=== PATIENT | female | born 1960 | race African-American/Black ===

== ENCOUNTER 2021-03-12 17:08 | Emergency (ER) | payer MEDICARE, MEDICAID ==
[~2021-03-12] VITALS: Ht 157.5 cm; Wt 90.9 kg
[~2021-03-12 17:08] MED LIST: ACET-704 PO; CYCL5TAB PO; IBUP-1060 PO; MELO7.5T5 PO; ORPH100T PO
--- NOTE | 2021-03-12 17:19 | PHYS DOC ---
Past Medical History Past Medical History: Arthritis, Depression, Other Additional Past Medical Histor: drug abuse; PTSD; bulging disc Past Surgical History: Smoking Status: Former Smoker Alcohol Use: Sober Drug Use: None General Adult EDM: Chief Complaint: CHEST PAIN HPI: HPI: Patient is a 60-year-old female who presents to the emergency department for substernal chest pain that started at 1630. She describes it as a stabbing pain and rates it 8 out of 10. It does not radiate. Was worse after eating. No alleviating factors. No treatment prior to arrival. Patient reports that she was feeling mildly short of breath, lightheaded and diaphoretic. She reports nausea and one episode of vomiting. Patient has a history of hypertension. Review of Systems: Review of Systems: Respiratory: See HPI Cardiovascular: See HPI GI: See HPI Neurologic: See HPI Heart Score: C/O Chest Pain: Yes HEART Score for Chest Pain: HEART Score for Chest Pain Response (Comments) Value History Slighlty/Non-Suspicious 0 ECG Normal 0 Age >45 - < 65 1 Risk Factors 1 or 2 Risk Factors 1 Troponin < Normal Limit 0 Total 2 Risk Factors: Risk Factors: DM, Current or recent (<one month) smoker, HTN, HLP, family history of CAD, obesity. Risk Scores: Score 0 - 3: 2.5% MACE over next 6 weeks - Discharge Home Score 4 - 6: 20.3% MACE over next 6 weeks - Admit for Clinical Observation Score 7 - 10: 72.7% MACE over next 6 weeks - Early Invasive Strategies Allergies: Allergies: Allergies Coded Allergies Type Severity Reaction Last Updated Verified Penicillins Allergy Intermediate 04/18/15 Yes Sulfa (Sulfonamide Antibiotics) Allergy Intermediate 04/18/15 Yes diphenhydramine Allergy Intermediate 04/18/15 Yes Uncoded Allergies Type Severity Reaction Last Updated Verified antidepressants" Allergy Unknown 04/18/15 Physical Exam: PE: Constitutional: Well developed, well nourished, no acute distress, non-toxic appearance. [] HENT: Normocephalic, atraumatic, bilateral external ears normal, oropharynx moist, no oral exudates, nose normal. [] Eyes: PERRL, EOMI, conjunctiva normal, no discharge. [] Neck: Normal range of motion, no stridor Cardiovascular:Heart rate regular rhythm, chest pain reproducable, no murmur [] Lungs & Thorax: Bilateral breath sounds clear to auscultation [] Abdomen: Bowel sounds normal, soft, no tenderness, no masses, no pulsatile masses. [] Skin: Warm, dry, no erythema, no rash. [] Back: Normal range of motion Extremities: No tenderness, no cyanosis, no clubbing, ROM intact, no edema. [] Neurologic: Alert and oriented X 3, normal motor function, normal sensory function, no focal deficits noted. [] Psychologic: Affect normal, judgement normal, mood normal. [] Current Patient Data: Labs: Laboratory Tests Test 03/12/21 17:22 White Blood Count 7.4 x10^3/uL Red Blood Count 4.35 x10^6/uL Hemoglobin 13.2 g/dL Hematocrit 38.9 % Mean Corpuscular Volume 89 fL Mean Corpuscular Hemoglobin 30 pg Mean Corpuscular Hemoglobin Concent 34 g/dL Red Cell Distribution Width 13.8 % Platelet Count 257 x10^3/uL Neutrophils (%) (Auto) 79 % Lymphocytes (%) (Auto) 12 % Monocytes (%) (Auto) 7 % Eosinophils (%) (Auto) 2 % Basophils (%) (Auto) 0 % Neutrophils # (Auto) 5.8 x10^3/uL Lymphocytes # (Auto) 0.9 x10^3/uL Monocytes # (Auto) 0.5 x10^3/uL Eosinophils # (Auto) 0.1 x10^3/uL Basophils # (Auto) 0.0 x10^3/uL Sodium Level 139 mmol/L Potassium Level 4.0 mmol/L Chloride Level 104 mmol/L Carbon Dioxide Level 27 mmol/L Anion Gap 8 Blood Urea Nitrogen 12 mg/dL Creatinine 0.9 mg/dL Estimated GFR (Cockcroft-Gault) 77.0 BUN/Creatinine Ratio 13 Glucose Level 86 mg/dL Calcium Level 9.4 mg/dL Total Bilirubin 0.5 mg/dL Aspartate Amino Transf (AST/SGOT) 30 U/L Alanine Aminotransferase (ALT/SGPT) 33 U/L Alkaline Phosphatase 95 U/L Troponin I High Sensitivity 7 ng/L Total Protein 7.3 g/dL Albumin 3.7 g/dL Albumin/Globulin Ratio 1.0 Current Medications Medications (Trade) Dose Ordered Sig/Baldemar Route PRN Reason Start Time Stop Time Status Last Admin Dose Admin Aspirin (Aspirin Chewable) 324 mg 1X ONCE PO 03/12/21 17:30 03/12/21 17:31 DC 03/12/21 17:34 Sodium Chloride 1,000 ml @ 1,000 mls/hr 1X ONCE IV 03/12/21 17:30 03/12/21 18:29 DC 03/12/21 17:33 Ondansetron HCl (Zofran) 4 mg 1X ONCE IVP 03/12/21 17:30 03/12/21 17:31 DC Famotidine (Pepcid Vial) 20 mg 1X ONCE IVP 03/12/21 17:30 03/12/21 17:31 DC 03/12/21 17:34 Fentanyl Citrate (Fentanyl 2ml Vial) 50 mcg 1X ONCE IVP 03/12/21 17:30 03/12/21 17:31 DC EKG: EKG: EKG performed by ER staff at 1712 shows sinus rhythm with a rate of 60, QTC of 394, no STEMI read by Dr. Garibay at 1714 [] Radiology/Procedures: Radiology/Procedures: []REASON: cp PROCEDURE: PORTABLE CHEST 1V AP portable chest radiograph 03/12/2021 Clinical History: Chest pain. An AP erect portable digital radiograph of the chest was obtained. Comparison study is dated 09/08/2006. The cardiac silhouette is normal in size. The thoracic aorta is tortuous. No acute pulmonary infiltrate is seen. No pleural effusion or pneumothorax is noted. Degenerative changes are seen involving the thoracic spine and both shoulders. Impression: No acute abnormality is seen. Electronically signed by: Kavon Mike MD (03/12/2021 5:33 PM) [id number] DICTATED and SIGNED BY: KAVON MIKE MD DATE: 03/12/21 [id number] Course & Med Decision Making: Course & Med Decision Making Pertinent Labs and Imaging studies reviewed. (See chart for details) [] Patient presents to the emergency department for chest pain that occurred after eating with nausea/vomiting. Work-up in the ER consisted of blood work, EKG, chest x-ray. Patient was treated with IV fluids, nausea medication and pepcid. Patient refused pain medication and nausea medication in ER. In the ER was unremarkable. Patient had negative troponin. Her heart score was 2. Patient reports improvement in her symptoms following treatment in the emergency department. She reports that she denies GERD and was wondering if this is possibly due to her GERD as it was resolved with Pepcid. Patient advised to follow-up with her primary care provider. I discussed with patient all findings and diagnostic testing as well as the need to follow-up with PCP for further evaluation and treatment or return to the ER if any new or worsening symptoms. Strict return precautions were also discussed at length. Patient voiced understanding and agreement with the plan. Patient is hemodynamically stable at the time of disposition. Dragon Disclaimer: Dragon Disclaimer: This electronic medical record was generated, in whole or in part, using a voice recognition dictation system. Departure Departure Impression: Primary Impression: Chest pain Qualified Codes: R07.9 - Chest pain, unspecified Disposition: HOME / SELF CARE / HOMELESS Condition: GOOD Referrals: WESTON NOWAK MD (PCP) Patient Instructions: Chest Pain (Nonspecific) Additional Instructions: You were seen in the emergency department today for chest pain. You reported improvement in your symptoms after being treated with Pepcid. At this time, does not appear that you are experiencing acute coronary syndrome. However, if you go home and develop chest pain again, you must be reevaluated in the ER immediately. At home rest and increase your fluids. Avoid any foods that may cause an increase in your GERD such as spicy or greasy foods. You should follow-up with your primary care provider tomorrow regarding your ER visit. Return to the emergency department if you develop chest pain, shortness of breath, intractable nausea or vomiting, dizziness or syncope, high fevers refractory to treatment or any new or worsening concerns. EMERGENCY DEPARTMENT GENERAL DISCHARGE INSTRUCTIONS Thank you for coming to [facility] Emergency Department (ED) today and trusting us with you care. We trust that you had a positive experience in our Emergency Department. If you wish to speak to the department management, you may call the Director at [phone]. YOUR FOLLOW UP INSTRUCTIONS ARE FOLLOWS: 1. Do you have a private Doctor? If you do not have a private doctor, please ask for a resource list of physicians or clinics that may be able to assist you with follow up care. 2. The Emergency Physicain has interpreted your x-rays. The X-Ray specialist will also review them. If there is a change in the findings, you will be notified in 48 hours when at all possible. 3. A lab test or culture has been done, your results will be reviewed and you will be notified if you need a change in treatment. ADDITIONAL INSTRUCTIONS AND INFORMATION: 1. Your care today has been supervised by a physician who is specially trained in emergency care. Many problems require more than one evaluation for a complete diagnosis and treatment. We recommend that you schedule your follow up appointment as recommended to ensure complete treatment of you illness or injury. If you are unable to obtain follow up care and continue to have a problem, or if your condition worsens, we recommend that you return to the ED. 2. We are not able to safely determine your condition over the phone nor are we able to give sound medical advice over the phone. For these safety reasons, if you call for medical advice we will ask you to come to the ED for further evaluation. 3. If you have any questions regarding these discharge instructions please call the ED at [phone]. SAFETY INFORMATION: In the interest of safety, wellness, and injury prevention; we encourage you to wear your sealbelt, if you smoke; quite smoking, and we encourage family to use a protective helmet for bicycling and other sporting events that present an increased risk for head injury. IF YOUR SYMPTOMS WORSEN OR NEW SYMPTOMS DEVELOP, OR YOU HAVE CONCERNS ABOUT YOUR CONDITION; OR IF YOUR CONDITION WORSENS WHILE YOU ARE WAITING FOR YOUR FOLLOW UP APPOINTMENT; EITHER CONTACT YOUR PRIMARY CARE DOCTOR, THE PHYSICIAN WHOSE NAME AND NUMBER YOU WERE GIVEN, OR RETURN TO THE ED IMMEDIATELY. JOCELYN SAAVEDRA APRN Mar 12, 2021 17:19
[2021-03-12 17:29] LABS: BASO % 0 % (0-3); EOS # 0.1 x10^3/uL (0.0-0.7); EOS % 2 % (0-3); HEMATOCRIT 38.9 % (36.0-47.0); HEMOGLOBIN 13.2 g/dL (12.0-15.5); LYMPH # 0.9 x10^3/uL (1.0-4.8); LYMPH % 12 % (24-48); MEAN CORPUSCULAR HEMOGLOBIN 30 pg (25-35); MEAN CORPUSCULAR HGB CONC 34 g/dL (31-37); MEAN CORPUSCULAR VOLUME 89 fL (79-100); MONO # 0.5 x10^3/uL (0.0-1.1); MONO % 7 % (0-9); NEUT # 5.8 x10^3/uL (1.8-7.7); NEUT % 79 % (31-73); PLATELET COUNT 257 x10^3/uL (140-400); RED BLOOD COUNT 4.35 x10^6/uL (3.50-5.40); RED CELL DISTRIBUTION WIDTH 13.8 % (11.5-14.5); WHITE BLOOD COUNT 7.4 x10^3/uL (4.0-11.0)
[2021-03-12] MEDS ORDERED: IV NORMAL SALINE 1000ML BAG 1,000 ML IV ONE (17:30)
[2021-03-12] MEDS ORDERED: ASPIRIN CHEWABLE 81 MG TABLET. PO ONE (17:30)
[2021-03-12] MEDS ORDERED: FAMOTIDINE 20 MG/2 ML VIAL IVP ONE (17:30)
[2021-03-12] MEDS ORDERED: fentaNYL PF VIAL 100 MCG/2 ML VIAL IVP ONE (17:30)
[2021-03-12] MEDS ORDERED: ONDANSETRON PF 4 MG/2 ML VIAL. IVP ONE (17:30)
--- NOTE | 2021-03-12 17:35 | RAD ---
AP portable chest radiograph 03/12/2021 Clinical History: Chest pain. An AP erect portable digital radiograph of the chest was obtained. Comparison study is dated 09/08/2006. The cardiac silhouette is normal in size. The thoracic aorta is tortuous. No acute pulmonary infiltra te is seen. No pleural effusion or pneumothorax is noted. Degenerative changes are seen involving the thoracic spine and both shoulders. Impression: No acute abnormality is seen. Electronically signed by: Kavon Mike MD (03/12/2021 5:33 PM) [id number]
[2021-03-12 17:42] LABS: CALCIUM 9.4 mg/dL (8.5-10.1); CREATININE 0.9 mg/dL (0.6-1.0)
[2021-03-12 17:48] LABS: ALBUMIN 3.7 g/dL (3.4-5.0); TOTAL BILIRUBIN 0.5 mg/dL (0.2-1.0); TOTAL PROTEIN 7.3 g/dL (6.4-8.2)
[2021-03-12 18:47] VITALS: BP 160/72
[2021-03-12] MEDS ORDERED: KETOROLAC 15 MG/ML VIAL. IVP ONE (19:00)
--- NOTE | 2021-03-13 00:06 | EKG ---
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
== END 2021-03-12 19:05 | disposition home or self-care (01) ==
LOC: ER 17:08
DX: R07.2 Precordial pain (principal); R42 Dizziness and giddiness; R06.02 Shortness of breath; R61 Generalized hyperhidrosis; I10 Essential (primary) hypertension; F43.10 Post-traumatic stress disorder, unspecified; Z87.891 Personal history of nicotine dependence; Z88.0 Allergy status to penicillin; Z88.2 Allergy status to sulfonamides; Z88.5 Allergy status to narcotic agent; Z88.8 Allergy status to other drugs, medicaments and biological substances
CPT/HCPCS: 36415; 71045; 80053; 84484; 85025; 93005; 96361; 96374; 96375; 99285; J1885; J3490; J7030

== ENCOUNTER 2021-06-13 16:23 | Emergency (ER) | payer MEDICARE, MEDICAID ==
[~2021-06-13] VITALS: Ht 157.5 cm; Wt 87.3 kg
[2021-06-13] MEDS ORDERED: MECLIZINE HCL 12.5 MG TABLET. PO ONE (17:00)
[2021-06-13] MEDS ORDERED: IV NORMAL SALINE 1000ML BAG 1,000 ML IV ONE (17:00)
[2021-06-13 17:02] LABS: BILIRUBIN,URINE NEGATIVE (NEG); CLARITY,URINE CLEAR; COLOR,URINE YELLOW; NITRITE,URINE NEGATIVE (NEG); PROTEIN,URINE NEGATIVE (NEG-TRACE); UROBILINOGEN,URINE 0.2 mg/dL (0.2 mg/dL)
[2021-06-13 17:07] LABS: BASO % 1 % (0-3); EOS # 0.1 x10^3/uL (0.0-0.7); EOS % 2 % (0-3); HEMATOCRIT 37.5 % (36.0-47.0); HEMOGLOBIN 12.3 g/dL (12.0-15.5); LYMPH # 1.1 x10^3/uL (1.0-4.8); LYMPH % 22 % (24-48); MEAN CORPUSCULAR HEMOGLOBIN 29 pg (25-35); MEAN CORPUSCULAR HGB CONC 33 g/dL (31-37); MEAN CORPUSCULAR VOLUME 90 fL (79-100); MONO # 0.6 x10^3/uL (0.0-1.1); MONO % 13 % (0-9); NEUT # 3.2 x10^3/uL (1.8-7.7); NEUT % 63 % (31-73); PLATELET COUNT 217 x10^3/uL (140-400); RED BLOOD COUNT 4.18 x10^6/uL (3.50-5.40); RED CELL DISTRIBUTION WIDTH 14.2 % (11.5-14.5)
[2021-06-13 17:08] LABS: BACTERIA,URINE 0 /HPF (0-FEW); RBC,URINE 0 /HPF (0-2)
[2021-06-13 17:10] LABS: AMPHETAMINE/METHAMPHETAMINE NEG (NEG); BARBITURATES NEG (NEG); BENZODIAZEPINES NEG (NEG); CANNABINOIDS NEG (NEG); COCAINE NEG (NEG); METHADONE NEG (NEG); OPIATES NEG (NEG); PHENCYCLIDINE NEG (NEG)
--- NOTE | 2021-06-13 17:15 | RAD ---
Exam: Chest one view INDICATION: Dizziness TECHNIQUE: Frontal view of the chest Comparisons: 03/12/2021 FINDINGS: The cardiomediastinal silhouette and pulmonary vessels are within normal limits. The lung and pleural spaces are clear. IMPRESSION: No acute cardiopulmonary process. Electronically signed by: Sun Serrano MD (06/13/2021 5:13 PM) GARCIA
[2021-06-13 17:24] LABS: CALCIUM 8.3 mg/dL (8.5-10.1); CREATININE 0.9 mg/dL (0.6-1.0); POTASSIUM 3.9 mmol/L (3.5-5.1)
[2021-06-13 17:30] LABS: ALBUMIN 3.2 g/dL (3.4-5.0); ALBUMIN/GLOBULIN RATIO 0.9 (1.0-1.7); MAGNESIUM 2.1 mg/dL (1.8-2.4); TOTAL BILIRUBIN 0.4 mg/dL (0.2-1.0); TOTAL PROTEIN 6.7 g/dL (6.4-8.2)
--- NOTE | 2021-06-13 17:51 | RAD ---
CT scan of the head without contrast 06/13/2021 Clinical History: Dizziness. Technique: Unenhanced, contiguous, 5 mm axial sections were obtained through the head. One or more of the following individualized dose reduction techniques were utilized for this study: 1. Automated exposure control. 2. Adjustment of the mA and/or kV according to patient size. 3. Use of iterative reconstruction technique. Findings: The ventricles and sulci are within normal limits in size and configuration. Areas of decre ased attenuation are seen within the periventricular and subcortical white matter of both cerebral he mispheres consistent with areas of small vessel ischemic disease. No acute parenchymal abnormality is seen. No extra-axial fluid collection is noted. No skull fracture is seen. Impression: No acute intracranial abnormality is seen. Electronically signed by: Kavon Mike MD (06/13/2021 5:49 PM) [id number]
--- NOTE | 2021-06-13 18:08 | EKG ---
[facility] [address] [place] [address] Test Date: 2021-06-13 Test Time: 16:30:31 Pat Name: LUANN TUCKER Department: Room: Gender: F Music Professionals: : 1960 Requested By: HOMA MURCIA Order Number: [id number] Reading MD: Anival Ho MD Measurements Intervals [place] Rate: 58 P: 139 MO: 146 QRS: -173 QRSD: 84 T: 171 QT: 400 QTc: 396 Interpretive Statements SR LIMB LEAD MISPLACEMENT Electronically Signed On 06-17-2021 8:34:30 PHOTOTYPESETTER OPERATOR by Anival Ho MD
--- NOTE | 2021-06-13 18:08 | EKG ---
[facility] [address] [place] [address] Test Date: 2021-06-13 Test Time: 16:32:13 Pat Name: LUANN TUCKER Department: Room: Gender: F Pot Builder: : 1960 Requested By: HOMA MURCIA Order Number: [id number] Reading MD: Anival Ho MD Measurements Intervals [place] Rate: 60 P: 121 VT: 142 QRS: -173 QRSD: 86 T: 143 QT: 402 QTc: 406 Interpretive Statements SINUS RHYTHM LIMB LEAD MISPLACEMENT Electronically Signed On 06-17-2021 8:34:21 CALENDER TENDER by Anival Ho MD
[2021-06-13 18:31] VITALS: BP 133/81
--- NOTE | 2021-06-13 18:49 | PHYS DOC ---
Past Medical History Past Medical History: Arthritis, Depression, High Cholesterol, Hypertension, Other Additional Past Medical Histor: Kelley's Palsy Past Surgical History: Smoking Status: Never Smoker Alcohol Use: None Drug Use: None General Adult EDM: Chief Complaint: DIZZY/LIGHT HEADED HPI: HPI: Patient is a 60 year old female with a history of hypertension, high cholesterol, depression, who presents to the ED today complaining of dizziness intermittently for 2 weeks. Patient denies any exacerbating or relieving factors to her dizziness. She states "it just happens". Denies any chest pain, shortness of breath. She states she is fully vaccinated against COVID-19. Patient denies any vision changes, she states she is being worked up for giant cell arteritis by the timber skidder for headaches and they will set her up for biopsy. She states her headaches have been going on for weeks. Denies any headache right now She started crying while we were talking, she states the son last December and 5 days later the son's daughter . Both of them from an overdose. Patient states she has been grieving since then. Denies any suicidal or homicidal ideations. She states she has a sister in [facility] who is her support system. She states she came to the ED to be evaluated to make sure she does not have a stroke or heart attack. Review of Systems: Review of Systems: Constitutional: Denies fever or chills. [] Eyes: Denies change in visual acuity. [] HENT: Denies nasal congestion or sore throat. [] Respiratory: Denies cough or shortness of breath. [] Cardiovascular: Denies chest pain or edema. [] GI: Denies abdominal pain, nausea, vomiting, bloody stools or diarrhea. [] : Denies dysuria. [] Musculoskeletal: Denies back pain or joint pain. [] Integument: Denies rash. [] Neurologic: Reports dizziness. Denies headache, focal weakness or sensory changes. [] Psychiatric: Denies depression or anxiety. [] Heart Score: C/O Chest Pain: N/A Risk Factors: Risk Factors: DM, Current or recent (<one month) smoker, HTN, HLP, family history of CAD, obesity. Risk Scores: Score 0 - 3: 2.5% MACE over next 6 weeks - Discharge Home Score 4 - 6: 20.3% MACE over next 6 weeks - Admit for Clinical Observation Score 7 - 10: 72.7% MACE over next 6 weeks - Early Invasive Strategies Current Medications: Current Medications Medications (Trade) Dose Ordered Sig/Baldemar Start Time Stop Time Status Last Admin Dose Admin Meclizine HCl (Antivert) 12.5 mg 1X ONCE 06/13/21 17:00 06/13/21 17:01 DC Sodium Chloride 1,000 ml @ 1,000 mls/hr 1X ONCE 06/13/21 17:00 06/13/21 17:59 DC 06/13/21 17:00 1,000 MLS/HR Allergies: Allergies: Allergies Coded Allergies Type Severity Reaction Last Updated Verified Penicillins Allergy Intermediate 03/12/21 Yes Sulfa (Sulfonamide Antibiotics) Allergy Intermediate 03/12/21 Yes diphenhydramine Allergy Intermediate 03/12/21 Yes Uncoded Allergies Type Severity Reaction Last Updated Verified antidepressants" Allergy Unknown 04/18/15 Physical Exam: PE: Constitutional: Well developed, well nourished, no acute distress, non-toxic appearance. [] HENT: Normocephalic, atraumatic, bilateral external ears normal, oropharynx moist, no oral exudates, nose normal. [] Eyes: PERRLA, EOMI, conjunctiva normal, no discharge. [] Neck: Normal range of motion, no tenderness, supple, no stridor. [] Cardiovascular:Heart rate regular rhythm Lungs & Thorax: Bilateral breath sounds clear to auscultation [] Abdomen: Bowel sounds normal, soft, no tenderness, no masses, no pulsatile masses. [] Skin: Warm, dry, no erythema, no rash. [] Back: No tenderness, no CVA tenderness. [] Extremities: No tenderness, no cyanosis, no clubbing, ROM intact, no edema. [] Neurologic: Alert and oriented X 3, normal motor function, normal sensory function, no focal deficits noted. Cranial nerves II through XII intact Psychologic: Tearful, depressed mood, denies suicidal homicidal ideations Current Patient Data: Labs: Laboratory Tests Test 06/13/21 16:38 06/13/21 17:00 Urine Collection Type Unknown Urine Color Yellow Urine Clarity Clear Urine pH 6.0 (<5.0-8.0) Urine Specific [place] <=1.005 (1.000-1.030) Urine Protein Negative mg/dL (NEG-TRACE) Urine Glucose (UA) Negative mg/dL (NEG) Urine Ketones (Stick) Negative mg/dL (NEG) Urine Blood Negative (NEG) Urine Nitrite Negative (NEG) Urine Bilirubin Negative (NEG) Urine Urobilinogen Dipstick 0.2 mg/dL (0.2 mg/dL) Urine Leukocyte Esterase Trace (NEG) Urine RBC 0 /HPF (0-2) Urine WBC 1-4 /HPF (0-4) Urine Squamous Epithelial Cells Few /LPF Urine Bacteria 0 /HPF (0-FEW) Urine Opiates Screen Neg (NEG) Urine Methadone Screen Neg (NEG) Urine Barbiturates Neg (NEG) Urine Phencyclidine Screen Neg (NEG) Urine Amphetamine/Methamphetamine Neg (NEG) Urine Benzodiazepines Screen Neg (NEG) Urine Cocaine Screen Neg (NEG) Urine Cannabinoids Screen Neg (NEG) Urine Ethyl Alcohol Neg (NEG) White Blood Count 5.0 x10^3/uL (4.0-11.0) Red Blood Count 4.18 x10^6/uL (3.50-5.40) Hemoglobin 12.3 g/dL (12.0-15.5) Hematocrit 37.5 % (36.0-47.0) Mean Corpuscular Volume 90 fL (79-100) Mean Corpuscular Hemoglobin 29 pg (25-35) Mean Corpuscular Hemoglobin Concent 33 g/dL (31-37) Red Cell Distribution Width 14.2 % (11.5-14.5) Platelet Count 217 x10^3/uL (140-400) Neutrophils (%) (Auto) 63 % (31-73) Lymphocytes (%) (Auto) 22 % (24-48) L Monocytes (%) (Auto) 13 % (0-9) H Eosinophils (%) (Auto) 2 % (0-3) Basophils (%) (Auto) 1 % (0-3) Neutrophils # (Auto) 3.2 x10^3/uL (1.8-7.7) Lymphocytes # (Auto) 1.1 x10^3/uL (1.0-4.8) Monocytes # (Auto) 0.6 x10^3/uL (0.0-1.1) Eosinophils # (Auto) 0.1 x10^3/uL (0.0-0.7) Basophils # (Auto) 0.0 x10^3/uL (0.0-0.2) Sodium Level 141 mmol/L (136-145) Potassium Level 3.9 mmol/L (3.5-5.1) Chloride Level 105 mmol/L (98-107) Carbon Dioxide Level 25 mmol/L (21-32) Anion Gap 11 (6-14) Blood Urea Nitrogen 14 mg/dL (7-20) Creatinine 0.9 mg/dL (0.6-1.0) Estimated GFR (Cockcroft-Gault) 77.0 BUN/Creatinine Ratio 16 (6-20) Glucose Level 69 mg/dL (70-99) L Calcium Level 8.3 mg/dL (8.5-10.1) L Magnesium Level 2.1 mg/dL (1.8-2.4) Total Bilirubin 0.4 mg/dL (0.2-1.0) Aspartate Amino Transferase (AST) 20 U/L (15-37) Alanine Aminotransferase (ALT) 20 U/L (14-59) Alkaline Phosphatase 67 U/L (46-116) Troponin I High Sensitivity 6 ng/L (4-50) FC-Bni-T-Type Natriuretic Peptide 94 pg/mL (0-124) Total Protein 6.7 g/dL (6.4-8.2) Albumin 3.2 g/dL (3.4-5.0) L Albumin/Globulin Ratio 0.9 (1.0-1.7) L Laboratory Tests 06/13/21 17:00 Laboratory Tests 06/13/21 17:00 Vital Signs: Vital Signs Date Time Temp Pulse Resp B/P (MAP) Pulse Ox O2 Delivery O2 Flow Rate FiO2 06/13/21 18:31 62 16 133/81 (98) 98 Room Air 06/13/21 16:24 97.6 97.6 EKG: EK interpreted by Dr. Neff sinus rhythm heart rate 60 no STEMI [] Radiology/Procedures: Radiology/Procedures: []PROCEDURE: CT HEAD WO CONTRAST CT scan of the head without contrast 06/13/2021 Clinical History: Dizziness. Technique: Unenhanced, contiguous, 5 mm axial sections were obtained through the head. One or more of the following individualized dose reduction techniques were utilized for this study: 1. Automated exposure control. 2. Adjustment of the mA and/or kV according to patient size. 3. Use of iterative reconstruction technique. Findings: The ventricles and sulci are within normal limits in size and configuration. Areas of decreased attenuation are seen within the ronan ventricular and subcortical white matter of both cerebral hemispheres consistent with areas of small vessel ischemic disease. No acute parenchymal abnormality is seen. No extra-axial fluid collection is noted. No skull fracture is seen. Impression: No acute intracranial abnormality is seen. Electronically signed by: Kavon Mike MD (06/13/2021 5:49 PM) [id number] DICTATED and SIGNED BY: KAVON MIKE MD DATE: 06/13/21 [id number] 0 PROCEDURE: PORTABLE CHEST 1V Exam: Chest one view INDICATION: Dizziness TECHNIQUE: Frontal view of the chest Comparisons: 03/12/2021 FINDINGS: The cardiomediastinal silhouette and pulmonary vessels are within normal limits. The lung and pleural spaces are clear. IMPRESSION: No acute cardiopulmonary process. Electronically signed by: Sun Barrera MD (06/13/2021 5:13 PM) [facility] DICTATED and SIGNED BY: SUN BARRERA MD DATE: 06/13/21 [id number] Course & Med Decision Making: Course & Med Decision Making Pertinent Labs and Imaging studies reviewed. (See chart for details) This is a 60-year-old female patient presenting to the ED today with dizziness, symptoms intermittently for 2 weeks. Vitals on arrival to the ED temperature 97.6, heart rate 54- reports history of chronic bradycardia and follows up with a chute worker, respiration 24, blood pressure 131/64, O2 sats 99% on room air, orthostatics were done and documented by the nursing staff-negative CT of the head is negative, chest x-ray is negative, CBC CMP troponin and UA are negative for any acute findings. Patient was offered admission to the hospital. She states she is not willing to take a chance and be admitted because she does not want to catch COVID19 from the hospital. She states she has a PCP, chute worker, timber skidder and she will call them tomorrow and set up a follow-up appointment. Also recommended following up with a neurologist. Instructed patient come back to the ED at any point symptoms worsen Case was discussed with Dr. Darwin Adams Disclaimer: Angie Disclaimer: This electronic medical record was generated, in whole or in part, using a voice recognition dictation system. Departure Departure Impression: Primary Impression: Dizziness Additional Impression: Grief at loss of child Disposition: 01 HOME / SELF CARE / HOMELESS Condition: STABLE Referrals: JEFF MONTELONGO MD (PCP) follow up next week JUAN ALBERTO BOCANEGRA MD follow up next week Patient Instructions: Dizziness, [id number], Grief Reaction Additional Instructions: You were evaluated in the emergency room for dizziness. Your CT of the head, chest x-ray, labs EKG and urine were negative for any acute findings, please follow-up with your primary care doctor, chute worker and a neurologist of your choice at [facility] for the one we provided you next week HOMA MURCIA APRN Jun 13, 2021 18:49
== END 2021-06-13 20:00 | disposition home or self-care (01) ==
LOC: ER 16:23
DX: R42 Dizziness and giddiness (principal); F43.21 Adjustment disorder with depressed mood; F32.9 Major depressive disorder, single episode, unspecified; E78.00 Pure hypercholesterolemia, unspecified; I10 Essential (primary) hypertension; Z88.0 Allergy status to penicillin; Z88.2 Allergy status to sulfonamides; Z88.5 Allergy status to narcotic agent; Z88.8 Allergy status to other drugs, medicaments and biological substances
CPT/HCPCS: 36415; 70450; 71045; 80053; 80307; 81001; 83735; 83880; 84484; 85025; 87086; 93005; 96360; 99285; J7030

== ENCOUNTER 2021-09-24 20:43 | Emergency (ER) | payer MEDICARE, MEDICAID ==
[~2021-09-24] VITALS: Ht 157.5 cm; Wt 88.2 kg
[2021-09-24 21:12] LABS: BASO % 1 % (0-3); EOS # 0.1 x10^3/uL (0.0-0.7); EOS % 2 % (0-3); HEMOGLOBIN 12.1 g/dL (12.0-15.5); LYMPH # 1.4 x10^3/uL (1.0-4.8); LYMPH % 29 % (24-48); MEAN CORPUSCULAR HEMOGLOBIN 30 pg (25-35); MEAN CORPUSCULAR HGB CONC 34 g/dL (31-37); MEAN CORPUSCULAR VOLUME 90 fL (79-100); MONO # 0.6 x10^3/uL (0.0-1.1); MONO % 13 % (0-9); NEUT # 2.7 x10^3/uL (1.8-7.7); NEUT % 56 % (31-73); PLATELET COUNT 243 x10^3/uL (140-400); RED BLOOD COUNT 4.02 x10^6/uL (3.50-5.40); RED CELL DISTRIBUTION WIDTH 14.1 % (11.5-14.5); WHITE BLOOD COUNT 4.8 x10^3/uL (4.0-11.0)
[2021-09-24] MEDS ORDERED: FAMOTIDINE 20 MG/2 ML VIAL IVP ONE (21:15)
[2021-09-24] MEDS ORDERED: ONDANSETRON PF 4 MG/2 ML VIAL. IVP ONE (21:15)
[2021-09-24] MEDS ORDERED: MAG HYDROX/ALUMINUM HYD/SIMETH 30 ML ORAL.SUSP PO ONE (21:15)
[2021-09-24] MEDS ORDERED: MORPHINE SULFATE 4 MG/ML INJ. IVP ONE (21:15)
[2021-09-24] MEDS ORDERED: KETOROLAC 30 MG/ML VIAL. IVP ONE (21:15)
[2021-09-24 21:24] LABS: CREATININE 0.7 mg/dL (0.6-1.0); GFR 102.6; POTASSIUM 3.4 mmol/L (3.5-5.1)
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
[2021-09-24 21:30] LABS: ALBUMIN 3.3 g/dL (3.4-5.0); MAGNESIUM 2.2 mg/dL (1.8-2.4); TOTAL BILIRUBIN 0.2 mg/dL (0.2-1.0); TOTAL PROTEIN 6.5 g/dL (6.4-8.2)
[2021-09-24] MEDS ORDERED: ASPIRIN 325 MG TABLET PO ONE (22:00)
[2021-09-24] MEDS ORDERED: LIDO700A21 TP (23:00)
[2021-09-24] MEDS ORDERED: LIDOCAINE (700MG/PATCH) PATCH. TD ONE (23:30)
[2021-09-24 23:48] VITALS: BP 153/81
--- NOTE | 2021-09-24 23:54 | RAD ---
XR CHEST 1V Clinical History: Reason: chest pain / Spl. Instructions: / History: Technique: AP view of the chest was obtained at 09/24/2021 9:38 PM. Comparison: June 13, 2021. Findings: The cardiomediastinal silhouette is normal. The pulmonary vasculature is normal. Linear opacities in the lung bases are unchanged and could be due to scarring atelectasis or scar. Impression: No evidence of an acute cardiopulmonary process. Electronically signed by: Elie Orellana III, MD (09/24/2021 11:51 PM) [facility]
--- NOTE | 2021-09-25 02:36 | EKG ---
[facility] [address] [place] [address] Test Date: 2021-09-24 Test Time: 20:53:11 Pat Name: LUANN TUCKER Department: Room: Gender: F Route Agent: ME : 1960 Requested By: SABRA LUGO Order Number: [id number] Reading MD: Anival Ho MD Measurements Intervals [place] Rate: 63 P: [place]: QRS: -9 QRSD: 196 T: 17 QT: 518 QTc: 534 Interpretive Statements SR Electronically Signed On 09-26-2021 15:35:21 CDT by Anival Ho MD
== END 2021-09-24 23:55 | disposition home or self-care (01) ==
LOC: ER 20:43
DX: R07.81 Pleurodynia (principal); M79.602 Pain in left arm; I10 Essential (primary) hypertension; E78.00 Pure hypercholesterolemia, unspecified; K21.9 Gastro-esophageal reflux disease without esophagitis; Z88.0 Allergy status to penicillin; Z88.2 Allergy status to sulfonamides; Z88.5 Allergy status to narcotic agent; Z88.8 Allergy status to other drugs, medicaments and biological substances
CPT/HCPCS: 36415; 71045; 80053; 83690; 83735; 83880; 84484; 85025; 93005; 96374; 96375; 99285; J1885; J3490